=== PATIENT | male | born 1960 | race African-American/Black ===

== ENCOUNTER 2019-08-14 11:20 | Emergency (ER) | payer OTHER, SELFPAY ==
[2019-08-14] MEDS ORDERED: Adacel (T-DAP) 0.5 ML SYRINGE ONE (13:00)
[2019-08-14] MEDS ORDERED: Lidocaine 1% PF 5 ML VIAL ONE (13:08)
--- NOTE | 2019-08-14 13:44 | RAD ---
EXAM: 3 views of the right index finger HISTORY: Finger pain after injury COMPARISON: None FINDINGS: There is no evidence of acute fracture or dislocation. Mild soft tissue swelling is seen. N o degenerative changes are present. No radiopaque foreign body is seen. IMPRESSION: No evidence of acute osseous abnormality.
== END 2019-08-14 14:25 | disposition home or self-care (01) ==
LOC: ERS 11:20
DX: S61.210A Laceration without foreign body of right index finger without damage to nail, initial encounter (principal); Z23 Encounter for immunization; I10 Essential (primary) hypertension; Z79.899 Other long term (current) drug therapy; W27.8XXA Contact with other nonpowered hand tool, initial encounter
CPT/HCPCS: 90471; 90715; J2001